=== PATIENT | female | born 1940 | race Caucasian/White ===

== ENCOUNTER 2023-01-28 09:32 | Outpatient (CLI) | payer MEDICARE, BC, SELFPAY | END 2023-01-28 09:33 | disposition home or self-care (01) | PROVIDERS: PCP Family Medicine; Visit Provider Family Medicine | DX: M54.16 Radiculopathy, lumbar region (principal); M51.36 Other intervertebral disc degeneration, lumbar region | CPT/HCPCS: 62323; J0702; Q9966 ==

== ENCOUNTER 2023-02-25 09:41 | Outpatient (CLI) | payer MEDICARE, BC, SELFPAY | END 2023-02-25 09:42 | disposition home or self-care (01) | LOC: RAD 09:42 | PROVIDERS: PCP Family Medicine; Visit Provider Family Medicine | DX: M51.36 Other intervertebral disc degeneration, lumbar region (principal); M54.16 Radiculopathy, lumbar region; M54.17 Radiculopathy, lumbosacral region; M48.062 Spinal stenosis, lumbar region with neurogenic claudication | CPT/HCPCS: 64483; J1100; Q9966 ==

== ENCOUNTER 2023-05-30 10:37 | Outpatient (CLI) | payer MEDICARE, BC, SELFPAY | END 2023-05-30 10:38 | disposition home or self-care (01) | LOC: INJ CL 10:38 | PROVIDERS: PCP Family Medicine; Visit Provider Family Medicine | DX: M54.16 Radiculopathy, lumbar region (principal) | CPT/HCPCS: 64483; J1100; Q9966 ==

== ENCOUNTER 2023-08-05 09:26 | Outpatient (CLI) | payer MEDICARE, BC, SELFPAY | END 2023-08-05 09:27 | disposition home or self-care (01) | LOC: INJ CL 09:28 | PROVIDERS: PCP Family Medicine; Visit Provider Family Medicine | DX: M54.16 Radiculopathy, lumbar region (principal); M51.36 Other intervertebral disc degeneration, lumbar region | CPT/HCPCS: 64483; J1100; Q9966 ==

== ENCOUNTER 2023-12-02 10:21 | Outpatient (CLI) | payer MEDICARE, BC, SELFPAY | END 2023-12-02 10:22 | disposition home or self-care (01) | LOC: INJ CL 10:23 | PROVIDERS: PCP Family Medicine; Visit Provider Family Medicine | DX: M54.16 Radiculopathy, lumbar region (principal); M51.36 Other intervertebral disc degeneration, lumbar region | CPT/HCPCS: 64483; J1100; Q9966 ==